=== PATIENT | female | born 1985 | race Caucasian/White ===

== ENCOUNTER 2023-07-05 12:21 | Inpatient (IN) | payer MEDICARE, MEDICAID ==
--- NOTE | 2023-07-05 12:49 | ED ---
General Adult HPI <Lewis Domingo - Last Filed: 07/05/23 12:49> - General Source: patient, RN notes reviewed Mode of arrival: ambulatory Limitations: no limitations <Lea Valencia - Last Filed: 07/06/23 02:32> - General Chief complaint: Psychiatric Symptoms Stated complaint: Mental Health Time Seen by Provider: 07/05/23 12:47 - History of Present Illness Initial comments: 37-year-old female presenting to the ED for psych evaluation. Per brother, has been picking up bottles from the store and has been calling them "medicine". States that these bottles are actually liquor bottles. That the patient is homeless and has been staying with him. She denied suicidal or homicidal ideation. (Lewis Domingo) This is a 37 year old female who presents to the emergency department for psychiatric evaluation. Patient was brought in by her brother and father. Per the patient's brother, she has a history of schizoaffective disorder and has been living with him for the last couple of weeks. She has not been taking any of her prescribed medications for at least a week, claiming that they're making her too tired. She has started self-medicating with alcohol, and referring to liquor bottles as her medicine. Her brother states that this is causing a lot of conflict between family members and almost caused a divorce between him and his . The patient has not been caring for herself and her brother and father are concerned about her safety. She has required inpatient psychiatric hospitalization in the past. Patient is responding to internal stimuli in the examination room. Denies any suicidal or homicidal ideations. (Lea Valencia) - Related Data Home Medications Medication Instructions Recorded Confirmed Divalproex ER [Depakote ER] 1,000 mg PO DAILY 07/05/23 07/05/23 Allergies Allergy/AdvReac Type Severity Reaction Status Date / Time fentanyl Allergy Anaphylaxis Verified 07/05/23 13:29 haloperidol [From Haldol] Allergy Unknown Verified 07/05/23 13:29 Review of Systems ROS Other: All systems not noted in ROS Statement are negative. <Lewis Domingo - Last Filed: 07/05/23 12:49> ROS Other: All systems not noted in ROS Statement are negative. <Lea Valencia - Last Filed: 07/06/23 02:32> ROS Statement: Those systems with pertinent positive or pertinent negative responses have been documented in the HPI. General Exam <Lewis Domingo - Last Filed: 07/05/23 12:49> Limitations: no limitations General appearance: alert, in no apparent distress Head exam: Present: atraumatic, normocephalic, normal inspection Respiratory exam: Present: normal lung sounds bilaterally. Absent: respiratory distress, wheezes, rales, rhonchi, stridor Cardiovascular Exam: Present: regular rate, normal rhythm, normal heart sounds. Absent: systolic murmur, diastolic murmur, rubs, gallop, clicks Neurological exam: Present: alert, oriented X3, CN II-XII intact Psychiatric exam: Present: flat affect. Absent: homicidal ideation, suicidal ideation Expanded Focused psych exam: Present: internal stimuli, delusional Skin exam: Present: warm, dry, intact, normal color. Absent: rash <Lea Valencia - Last Filed: 07/06/23 02:32> - General Exam Comments Initial Comments: Visual Physical Exam Vital signs reviewed General: Well-appearing, nontoxic, no acute distress. Head: Normocephalic, atraumatic Eyes: PERRLA, EOMI ENT: Airway patent Chest: Nonlabored breathing Skin: No visual rash, normal skin tone Neuro: Alert Musculoskeletal: No gross abnormalities (Lewis Domingo) Course Vital Signs 07/05/23 13:26 Temperature 98 F Pulse Rate 100 Respiratory 18 Rate Blood Pressure 132/78 O2 Sat by Pulse 100 Oximetry Medical Decision Making <Lewis Domigno - Last Filed: 07/05/23 12:49> <Lea Valencia - Last Filed: 07/06/23 02:32> - Medical Decision Making Quicknote portion performed. Signed Lewis Domingo PA-C (Lewis Domingo) This is a 37-year-old female who presents to the emergency department for psychiatric evaluation. Was pt. sent in by a medical professional or institution? @ -No Did you speak to anyone other than the patient for history? @ -Her brother provided the majority of the history. Did you review nursing and triage notes? @ -Yes, and I agree, it is accurate with regards to the patient's symptoms. Were old charts reviewed? @ -No Differential Diagnosis? @ -Differential Mental Health: Depression, anxiety, bipolar, psychosis, schizophrenia, borderline personality, situational depression, adjustment disorder, behavioral disorder, brain tumor, malingering, substance abuse, encephalopathy, medication reaction, dementia, h ypothyroidism, degenerative neurologic disorder, lupus.... This is not meant to be all-inclusive list EKG interpreted by me (3pts min.)? @ -Not obtained X-rays interpreted by me (1pt min.)? @ -Not obtained CT interpreted by me (1pt min.)? @ -Not obtained U/S interpreted by me (1pt. min.)? @ -Not obtained What testing was considered but not performed? (CT, X-rays, U/S, labs)? Why? @ -None What meds were considered but not given? Why? @ -None Did you discuss the management of the patient with other professionals? @ -Yes, EPS, who advised that the patient meets criteria for inpatient psychiatric hospitalization and will be admitted to this facility for further care. Did you reconcile home meds? @ -No Was smoking cessation discussed for >3mins.? @ -No Was critical care preformed (if so, how long)? @ -No Were there social determinants of health that impacted care today? How? (Homelessness, low income, unemployed, alcoholism, drug addiction, transportation, low edu. Level, literacy, decrease access to med. care, retirement, rehab)? @ -No Was there de-escalation of care discussed even if they declined? (Discuss DNR or withdrawal of care, Hospice)? @ -No What co-morbidities impacted this encounter? (DM, HTN, Smoking, COPD, CAD, Cancer, CVA, Hep., AIDS, mental health diagnosis, sleep apnea, morbid obesity)? @ -Schizoaffective disorder. Was patient admitted / discharged? @ -Admitted. Patient's BAT was 0.0 and she was cleared for EPS evaluation. UDS obtained and found to be negative. EPS evaluated the patient and found her to meet criteria for inpatient psychiatric hospitalization based on the active delusions, inability to care for herself, and lack of insight into her current situation. I am in agreement with this plan. Patient admitted to [facility] at this facility on in involuntary basis for further psychiatric care. Cert completed by ED attending, Dr. Tesfaye. Undiagnosed new problem with uncertain prognosis? @ -None Drug Therapy requiring intensive monitoring for toxicity (Heparin, Nitro, Insulin, Cardizem)? @ -None Were any procedures done? @ -None Diagnosis/symptom? @ -Psychosis Acute, or Chronic, or Acute on Chronic? @ -Acute Uncomplicated (without systemic symptoms) or Complicated (systemic symptoms)? @ -Complicated Side effects of treatment? @ -None Exacerbation, Progression, or Severe Exacerbation] @ -Not applicable Poses a threat to life or bodily function? @ -Yes This case was discussed in detail with the attending ED physician, Dr. Tesfaye. Presentation, findings, and treatment plan discussed in detail as well. (Lea Valencia) - Lab Data Lab Results 07/05/23 07/05/23 07/05/23 Range/Units 22:05 22:05 22:05 Urine Color Light Yellow Urine Appearance Cloudy H (Clear) Urine pH 6.0 (5.0-8.0) Ur Specific [place] 1.012 (1.001-1.035) Urine Protein Trace H (Negative) Urine Glucose (UA) Negative (Negative) Urine Ketones Negative (Negative) Urine Blood Negative (Negative) Urine Nitrite Negative (Negative) Urine Bilirubin Negative (Negative) Urine Urobilinogen <2.0 (<2.0) mg/dL Ur Leukocyte Esterase Large H (Negative) Urine RBC 21 H (0-5) /hpf Urine WBC 144 H (0-5) /hpf Ur Squamous Epith Cells 15 H (0-4) /hpf Urine Bacteria Occasional H (None) /hpf Urine Mucus Few H (None) /hpf Urine HCG, Qual Not Detected (Not Detectd) Urine Opiates Screen Not Detected (NotDetected) Ur Oxycodone Screen Not Detected (NotDetected) Urine Methadone Screen Not Detected (NotDetected) Ur Barbiturates Screen Not Detected (NotDetected) U Tricyclic Antidepress Not Detected (NotDetected) Ur Phencyclidine Scrn Not Detected (NotDetected) Ur Amphetamines Screen Not Detected (NotDetected) U Methamphetamines Scrn Not Detected (NotDetected) U Benzodiazepines Scrn Not Detected (NotDetected) Urine Cocaine Screen Not Detected (NotDetected) U Marijuana (THC) Screen Not Detected (NotDetected) SARS-CoV-2 (PCR) (Not Detectd) 07/05/23 Range/Units 23:50 Urine Color Urine Appearance (Clear) Urine pH (5.0-8.0) Ur Specific [place] (1.001-1.035) Urine Protein (Negative) Urine Glucose (UA) (Negative) Urine Ketones (Negative) Urine Blood (Negative) Urine Nitrite (Negative) Urine Bilirubin (Negative) Urine Urobilinogen (<2.0) mg/dL Ur Leukocyte Esterase (Negative) Urine RBC (0-5) /hpf Urine WBC (0-5) /hpf Ur Squamous Epith Cells (0-4) /hpf Urine Bacteria (None) /hpf Urine Mucus (None) /hpf Urine HCG, Qual (Not Detectd) Urine Opiates Screen (NotDetected) Ur Oxycodone Screen (NotDetected) Urine Methadone Screen (NotDetected) Ur Barbiturates Screen (NotDetected) U Tricyclic Antidepress (NotDetected) Ur Phencyclidine Scrn (NotDetected) Ur Amphetamines Screen (NotDetected) U Methamphetamines Scrn (NotDetected) U Benzodiazepines Scrn (NotDetected) Urine Cocaine Screen (NotDetected) U Marijuana (THC) Screen (NotDetected) SARS-CoV-2 (PCR) Not Detected (Not Detectd) Disposition <Lewis Domingo - Last Filed: 07/05/23 12:49> <Lea Valencia - Last Filed: 07/06/23 02:32> Clinical Impression: Acute psychosis Disposition: TRANSFER TO PSYCH HOSP/UNIT
[2023-07-05 22:33] LABS: Appearance,Urine Cloudy (Clear); Bacteria,Urine Occasional /hpf; Bilirubin,Urine Negative (Negative); Blood,Urine Negative (Negative); Color,Urine Light Yellow; Glucose,Urine (UA) Negative (Negative); Ketones,Urine Negative (Negative); Leukocyte Esterase,Urine Large (Negative); Mucus,Urine Few /hpf; Nitrite,Urine Negative (Negative); Protein,Urine Trace (Negative); RBC,Urine 21 /hpf (0-5); Specific Gravity,Urine 1.012 (1.001-1.035); Squamous Epithelial Cell,Urine 15 /hpf (0-4); Urobilinogen,Urine <2.0 mg/dL (<2.0); WBC,Urine 144 /hpf (0-5)
[2023-07-05 22:35] LABS: Amphetamine Screen,Urine Not Detected (NotDetected); Barbiturate Screen,Urine Not Detected (NotDetected); Benzodiazepines Screen,Urine Not Detected (NotDetected); Cocaine Screen,Urine Not Detected (NotDetected); Methadone Screen, Urine Not Detected (NotDetected); Opiate Screen,Urine Not Detected (NotDetected); Oxycodone Screen, Urine Not Detected (NotDetected); Phencyclidine Screen,Urine Not Detected (NotDetected); Tricyclic Antidepressant,Urine Not Detected (NotDetected); Urn Cannabinoid Scrn Not Detected (NotDetected)
[2023-07-06] MEDS ORDERED: OLANZapine 10 MG VIAL IM PRN (00:59)
[2023-07-06] MEDS ORDERED: OLANZapine 7.5 MG TAB PO PRN (00:59)
[2023-07-06] MEDS ORDERED: ACETAMINOPHEN TAB 325 MG TAB PO PRN (00:59)
[2023-07-06] MEDS ORDERED: MAG HYDROX/AL HYDROX/SIMETH 30 ML CUP PO PRN (00:59)
[2023-07-06] MEDS ORDERED: IBUPROFEN 600 MG TAB PO PRN (00:59)
[2023-07-06] MEDS ORDERED: MAGNESIUM HYDROXIDE 2,400 MG/30 ML CUP PO PRN (00:59)
[2023-07-06] MEDS: NICOTINE 14MG/24HR PATCH TRANSDERM SCH (09:18)
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
--- NOTE | 2023-07-06 16:08 | P.MDCNMH ---
History of Present Illness H&P Date: 07/06/23 This is a 37-year-old female who presented to the emergency department for psychiatric evaluation. Patient has been homeless and currently staying with family members including brother and reports to excessively drinking and has not been taking her psychiatric medications reporting and has been making her feel more tired. Patient has been self-medicating with alcohol. Patient was admitted under voluntary admission for further psychiatric care and evaluation to [facility] from the emergency room. Patient reports she follows with Dr. Aguilar in the outpatient setting with a past medical history of kidney stones and schizoaffective disorder. Patient admits she smokes about a pack a day of c igarettes and has been vaping and has been drinking daily. Patient reports she was on Depakote but feels that is the medication that was making her feel too tired. Review Of Systems: Constitutional: No fever, no chills, no night sweats. No weight change. No weakness, fatigue or lethargy. No daytime sleepiness. EENT: No headache. No blurred vision or double vision, no loss of vision. No loss of Hearing, no ringing in the ears, no dizziness. No nasal drainage or congestion. No epistaxis. No sore throat. Lungs: No shortness of breath, cough, no sputum production. No wheezing. Cardiovascular: No chest pain, no lower extremity edema. No palpitations. No paroxysmal nocturnal dyspnea. No orthopnea. No lightheadedness or dizziness. No syncopal episodes. Abdominal: No abdominal pain. No nausea, vomiting. No diarrhea. No constipation. No bloody or tarry stools.. No loss of appetite. Genitourinary: No dysuria, increased frequency, urgency. No urinary retention. Musculoskeletal: No myalgias. No muscle weakness, no gait dysfunction, no frequent falls. No back pain. No neck pain. Integumentary: No wounds, no lesions. No rash or pruritus. No unusual bruising. No change in hair or nails. Neurologic: No aphasia. No facial droop. No change in mentation. No head injury. No headache. No paralysis. No paresthesia. Psychiatric: No depression. No anxiety. No mood swings. Endocrine: No abnormal blood sugars. No weight change. No excessive sweating or thirst. No cold intolerance. PHYSICAL EXAMINATION: GENERAL: The patient is alert and oriented x4, Well developed, well nourished. HEENT: Pupils are round and equally reacting to light. EOMI. no scleral icterus. No conjunctival pallor. Normocephalic, atraumatic. No pharyngeal erythema. No thyromegaly. CARDIOVASCULAR: S1 and S2 muffled PULMONARY: diminished breath sounds bilaterally with no wheezing or rhonchi noted. ABDOMEN: soft. Nontender on exam. obese. non-distended, normoactive bowel sounds. No palpable organomegaly. MUSCULOSKELETAL: No joint swelling or deformity. EXTREMITIES: No cyanosis, clubbing, or pedal edema. NEUROLOGICAL: Gross neurological examination did not reveal any focal deficits. Diffuse weakness SKIN: No rashes. Assessment: EtOH abuse and has been drinking daily most recently, no signs of withdrawal at this time Schizoaffective disorder History of kidney stones Continued ongoing nicotine dependence vaping Noncompliance with medications Full code Plan: Recommend to continue with current medications and management per psychiatric services. Patient was voluntarily admitted to [facility] for further psychiatric care Patient has been using alcohol almost daily and self-medicating and has not been compliant with psychiatric medications reporting may make her feel too tired Patient is currently homeless and has been staying with her brother and other family members and reports does have 2 children although does not have contact with them at this time and has poor social support Patient reports she follows with [facility] in the outpatient setting although has not been following up as scheduled Recommend basic labs along with a Depakote level which is currently pending at this time Patient has been encouraged to attend group therapy sessions and be compliant with medications and psychiatric evaluation. The impression and plan of care has been dictated by Chloé Mak, nurse practitioner as directed. Dr. Jf MD I have performed a history and examination and MDM of this patient, discussed the same with the dictator, and agree with the dictator's assessment and plan as written ,documented as a scribe. Based on total visit time, I have performed more than 50% of the visit. Any additional findings or plans will be noted. Past Medical History Additional Past Medical History / Comment(s): kidney stones History of Any Multi-Drug Resistant Organisms: None Reported Past Surgical History: Unable to Obtain Past Anesthesia/Blood Transfusion Reactions: Unable to Obtain Past Psychological History: Schizoaffective Disorder Smoking Status: Current every day smoker, Vaper Past Alcohol Use History: Heavy Past Drug Use History: None Reported Medications and Allergies Home Medications Medication Instructions Recorded Confirmed Type Divalproex ER [Depakote ER] 1,000 mg PO DAILY 07/05/23 07/05/23 History Allergies Allergy/AdvReac Type Severity Reaction Status Date / Time fentanyl Allergy Anaphylaxis Verified 07/05/23 13:29 haloperidol [From Haldol] Allergy Unknown Verified 07/05/23 13:29 Physical Exam Vitals: Vital Signs Temp Pulse Pulse Resp BP BP Pulse Ox 07/06/23 02:40 97.9 F 85 18 134/82 98 07/05/23 13:26 98 F 100 18 132/78 100 Intake and Output 07/05/23 07/06/23 07/06/23 22:59 06:59 14:59 Other: Weight 64.467 kg Cranial Nerve Examination - Cranial Nerves Cranial Nerve I- Olfactory: Intact Cranial Nerve II- Optic: Intact Cranial Nerve III- Oculomotor: Intact Cranial Nerve IV- Trochlear: Intact Cranial Nerve V- Trigeminal: Intact Cranial Nerve - Abducens: Intact Cranial Nerve VII- Facial: Intact Cranial Nerve VIII- Auditory: Intact Cranial Nerve IX- Glossopharyngeal: Intact Cranial Nerve X- Vagus: Intact Cranial Nerve XI- Accessory: Intact Cranial Nerve XII- Hypoglossal: Intact Results Labs: Abnormal Lab Results - Last 24 Hours (Table) 07/05/23 Range/Units 22:05 Urine Appearance Cloudy H (Clear) Urine Protein Trace H (Negative) Ur Leukocyte Esterase Large H (Negative) Urine RBC 21 H (0-5) /hpf Urine WBC 144 H (0-5) /hpf Ur Squamous Epith Cells 15 H (0-4) /hpf Urine Bacteria Occasional H (None) /hpf Urine Mucus Few H (None) /hpf
--- NOTE | 2023-07-07 06:45 | P.PN ---
Subjective Progress Note Date: 07/07/23 Principal diagnosis: Diagnostic impression: Schizoaffective disorder unspecified Rule out alcohol use disorder Relationship problems Patient Name: Isabel Orellana Date of : 85 Patient Status: Inpatient Attending Provider: Carl Loaiza Date: 07/07/23 Subjective data: The patient was seen in her room where she seemed to be alert outside talking to herself Insight into the patient was pleasant and interactive patient reports that she usually talks to herself loudly She denies that she is experiencing any auditory or visual hallucinations She says that she is agreeable to take her to do and that she has no problems with starting on new medications She states that emotionally she feels somewhat numb She stated was any problems between her and her brother and his family and appears to be minimizing or unaware of it Thinking remains self-centered Denies any thoughts of wanting to herself or others Attitude remains that of somewhat uncaring and projective? States that she slept well Mental status examination: Reveals a young female who is appears her age and currently appears in no acute physical distress Patient is neatly dressed and groomed The patient is alert and oriented to time place and person Patient was added and superficially cooperative but did not give much details She makes good eye contact Speech was clear coherent and relevant Thought processes are goal-directed sequential mejia of any details Patient does not acknowledge to any depression or anxiety or any psychotic symptoms She denies any auditory or visual hallucinations She denies any feelings of helplessness or hopelessness Thought processes are goal-directed sequential , but empty of any details Patient's formal and operational judgment and insight remains impaired cognitively she appears to be intact Diagnostic impression: Schizoaffective disorder unspecified Rule out alcohol use disorder Relationship problems Formulation: This is a 37-year-old female with long history of mental illness and with a di agnosis of schizoaffective disorder Patient has a long history of mental illness with poor compliance She was on Depakote Prozac and Abilify but has not been taking her medications Patient also has a possible underlying alcohol use disorder Patient's symptoms appear to be causing adequate stress in her personal life as well as in her supportive family"s life and was brought into the hospital for further evaluation and treatment Plan: The patient sign in voluntarily and the paperwork has been placed in the chart Patient will be hospital is on the unit for further evaluation and treatment Patient will also participate in on the mejia activities individual milieu group OT RT PT and pharmacotherapy Approximately length of stay would be 7-12 days Medications: Patient has agreed to be started on Latuda and was started initially on 40 mg daily to start within titrated to response Patient was briefed on the effects and side effects of the medication which she appears to have understood well Patient has declined to take the Abilify and the Depakote but has agreed to take the Prozac but we'll wait on restarting the Prozac was of necessary Monitor for any alcohol withdrawal symptoms although patient reports that she's been drinking small amounts and socially patient services coordinator to be involved regarding placement recommendations as well as family communication and collateral information Maintain supportive care and safety precautions Encourage the patient to participate in on the mejia activities and milieu treatment Arnie Oro M.D. Objective - Vital Signs Vital signs: Vital Signs Temp 97.9 F 07/06/23 02:40 Pulse 85 07/06/23 02:40 Resp 18 07/06/23 02:40 BP 134/82 07/06/23 02:40 Pulse Ox 98 07/06/23 02:40 FiO2 Intake & Output 07/06/23 07/06/23 07/07/23 06:59 18:59 06:59 Weight 64.467 kg
[2023-07-07 08:25] LABS: Basophils % (A) 1 %; Eosinophils # (A) 0.2 k/uL (0-0.7); Eosinophils % (A) 2 %; HCT 45.7 % (34.0-46.0); Lymphocytes # (A) 1.3 k/uL (1.0-4.8); Lymphocytes % (A) 21 %; MCH 31.3 pg (25.0-35.0); MCHC 32.8 g/dL (31.0-37.0); MCV 95.2 fL (80.0-100.0); Mean Platelet Volume 7.2; Monocytes # (A) 0.3 k/uL (0-1.0); Monocytes % (A) 5 %; Neutrophils # (A) 4.3 k/uL (1.3-7.7); Neutrophils % (A) 69 %; Platelet Count 195 k/uL (150-450); RDW 12.2 % (11.5-15.5); WBC 6.2 k/uL (3.8-10.6)
[2023-07-07] MEDS: LURASIDONE 40 MG TAB PO SCH (08:27)
[2023-07-07] MEDS: NICOTINE 14MG/24HR PATCH TRANSDERM SCH (08:27)
[2023-07-07 08:57] LABS: ALT 12 U/L (4-34); AST 19 U/L (14-36); African American GFR (CKD) 78 (>60 ml/min/1.73 sqM); Albumin 4.2 g/dL (3.5-5.0); Alkaline Phosphatase 74 U/L (38-126); Anion Gap 14 mmol/L; Bilirubin, Delta 0.2 mg/dL (0.0-0.2); Bilirubin,Unconjugated 0.5 mg/dL (0.0-1.1); Blood Urea Nitrogen 16 mg/dL (7-17); Calcium 9.4 mg/dL (8.4-10.2); Carbon Dioxide 24 mmol/L (22-30); Chloride 103 mmol/L (98-107); Glucose 93 mg/dL (74-99); Non-African American GFR(CKD) 67 (>60 ml/min/1.73 sqM); Potassium 4.6 mmol/L (3.5-5.1); Sodium 141 mmol/L (137-145); Total Bilirubin 0.7 mg/dL (0.2-1.3); Total Protein 7.4 g/dL (6.3-8.2)
[2023-07-07 15:23] LABS: Chol/HDL Ratio 2.73 Ratio; LDL Cholesterol,Calculated 97.2 mg/dL (0.0-131.0)
[2023-07-08] MEDS: NICOTINE 14MG/24HR PATCH TRANSDERM SCH (08:25)
[2023-07-08] MEDS: LURASIDONE 40 MG TAB PO SCH ×3 (08:25→17:46)
[2023-07-08] MEDS ORDERED: LURASIDONE 40 MG TAB PO SCH (17:30)
[2023-07-09] MEDS: LURASIDONE 40 MG TAB PO SCH ×2 (08:23→17:41)
[2023-07-09] MEDS: NICOTINE 14MG/24HR PATCH TRANSDERM SCH (08:26)
[2023-07-09] MEDS: OLANZapine 10 MG TAB PO PRN (13:21)
--- NOTE | 2023-07-09 18:06 | P.PN ---
Progress Note - Text Progress Note Date: 07/08/23 Interval history: Patient was seen resting in bed in the dark in the middle of the day and was directable and agreeable to speak with principal technical writer. She states she is "not really good", appears internally preoccupied, staring at the ceiling. Thought process is concrete. At this time patient denies any suicidal or homicidal ideation, intent or plan. Denies any auditory or visual hallucinations, however she appears internally preoccupied. Patient denies any side effects from the m edications and has been compliant with meds. We discussed her medications and she inquires about an increase in her Latuda, so we will increase this to Latuda 40 mg BID with meals. Mental status exam: General Appearance: Patient appears to be stated age, young adult female, somewhat disheveled Behavior: No agitated behavior. Patient is calm, passively engaged, laying in bed Speech: Patient's speech is fluent and non-pressured. Mood/Affect: Mood is improving mildly, affect is congruent and constricted. Suicidality/Homicidality: Patient denies having any suicidal or homicidal ideation intent or plan. Perceptions: Patient denies any auditory or visual hallucinations, however she appears internally preoccupied. Though content/process: There is no evidence of any delusional thought content and thought process is somewhat concrete. Memory and concentration: AOX3, grossly intact for the purposes of this session Judgment and insight: Improving mildly Assessment/Plan: Continue with current diagnosis. Patient continues to meet criteria for inpatient psychiatric admission for symptom stabilization and safety. Increase Latuda from 40 mg daily with food to 40 mg BID with meals (breakfast and dinner) for mood/psychosis. Monitor for medication compliance and for any psychotropic medication side effects. Will continue to monitor ongoing response to treatment. Encouraged participation in milieu.
--- NOTE | 2023-07-09 18:16 | P.PN ---
Progress Note - Text Progress Note Date: 07/09/23 Interval history: Patient was seen resting in bed in the dark in the middle of the day but appears more actively engaged in assessment today. She states her mood is "pretty good"; feels better on the increased dose of Latuda and denies medication side effects. Thought process is concrete. At this time patient denies any suicidal or homicidal ideation, intent or plan. Denies any auditory or visual hallucinations, but still appears internally preoccupied. Per nursing note, patient was agitated this afternoon, appeared to be attending to unseen stimuli. She was given Zyprexa 10 mg po x 1 at 13:20 by nurse and appears to have benefited from it. Patient denies any side effects from the medications and has been compliant with meds. We discussed her medications and increasing her Latuda to 60 mg BID with meals and she expresses agreement. Mental status exam: General Appearance: Patient appears to be stated age, young adult female, improved grooming today Behavior: No agitated behavior. Patient is calm, laying in bed. Speech: Patient's speech is fluent and non-pressured. Mood/Affect: Mood is improving mildly, affect is congruent and constricted. Suicidality/Homicidality: Patient denies having any suicidal or homicidal ideation intent or plan. Perceptions: Patient denies any auditory or visual hallucinations, however she appears internally preoccupied. Though content/process: There is no overt delusional thought content during our assessment and thought process is somewhat concrete. Memory and concentration: AOX3, grossly intact for the purposes of this session Judgment and insight: Improving mildly Assessment/Plan: Continue with current diagnosis. Patient continues to meet criteria for inpatient psychiatric admission for symptom stabilization and safety. Increase Latuda from 40 mg BID with meals to 60 mg BID with meals (breakfast and dinner) for mood/psychosis. Continue Zyprexa 10 mg Q6H PRN for agitation/psychosis. Monitor for medication compliance and for any psychotropic medication side effects. Will continue to monitor ongoing response to treatment. Encouraged participation in milieu.
[2023-07-09] MEDS ORDERED: LURASIDONE 20 MG TAB PO ONE (18:25)
[2023-07-10] MEDS ORDERED: LURASIDONE 60 MG TAB PO SCH (07:30)
[2023-07-10] MEDS: NICOTINE 14MG/24HR PATCH TRANSDERM SCH (08:38)
--- NOTE | 2023-07-10 11:56 | P.PN ---
Progress Note - Text Progress Note Date: 07/10/23 Interval history: Patient was seen in her room, and agreeable to speak with financial writer at the bedside. Patient was not willing to come to the office today. Continues to be fairly concrete. She did not offer any complaints at this time. She vaguely spoke about watched him to the hospital whenever mainly stated "because I wasn't taking medications". She does claim that she has a history of schizoaffective disorder. 2. To have fairly poor insight and judgment. She has been taking her medications at this time. She did not offer any overnight complaint states that she is sleeping fairly. She claimed that she is feeling bored on the unit. Denies any delusions or paranoia at this time. Continues to appear to be internally preoccupied. At this time patient denies any suicidal or homicidal ideation, intent or plan. Denies any auditory or visual hallucinations, Patient denies any side effects from the medications and has been compliant with meds. Mental status exam: General Appearance: Patient appears to be stated age, young adult female, fair hygiene and grooming Behavior: No agitated behavior. Patient is calm, laying in bed. Superficial Speech: Patient's speech is fluent and non-pressured. [place] Mood/Affect: Mood is improving mildly, affect is congruent and constricted. Suicidality/Homicidality: Patient denies having any suicidal or homicidal ideation intent or plan. Perceptions: Patient denies any auditory or visual hallucinations, however she appears internally preoccupied. Though content/process: There is no overt delusional thought content during our assessment and thought process is somewhat concrete. Memory and concentration: AOX3, grossly intact for the purposes of this session Judgment and insight: Improving mildly Diagnostic impression: Schizoaffective disorder Rule out alcohol use disorder Assessment/Plan: Continue with current diagnosis. Patient continues to meet criteria for inpatient psychiatric admission for symptom stabilization and safety. changed Latuda 120 mg with dinner for mood/psychosis. Continue Zyprexa 10 mg Q6H PRN for agitation/psychosis. Monitor for medication compliance and for any psychotropic medication side effects. NRT - nicotine patch SW on board for discharge planning. Will continue to monitor ongoing response to treatment. Encouraged participation in milieu.
[2023-07-10] MEDS: LURASIDONE 60 MG TAB PO SCH (17:35)
[2023-07-11] MEDS: NICOTINE 14MG/24HR PATCH TRANSDERM SCH (08:41)
--- NOTE | 2023-07-11 11:55 | P.PN ---
Progress Note - Text Progress Note Date: 07/11/23 Interval history: Patient was seen in her room, and agreeable to speak with proposal writer at the bedside. Patient remains fairly concrete, however, this is improving mildly. States her mood is "good" and does not have complaints about anxiety or depression. She did not offer any complaints at this time. Patient's insight and judgement is mildly improving. She has been taking her medications at this time. Appetite is good. She did not offer any overnight complaint states that she is sleeping well. Spoke with patient about signing a release of information for her brother, where she will be staying upon discharge, so SW can coordinate d/c planning. Denies any delusions or paranoia at this time. At this time patient denies any suicidal or homicidal ideation, intent or plan. Denies any auditory or visual hallucinations, Patient denies any side effects from the medications and has been compliant with meds. Mental status exam: General Appearance: Patient appears to be stated age, young adult female, fair hygiene and grooming Behavior: No agitated behavior. Patient is calm, laying in bed. Superficial, mildly improving Speech: Patient's speech is fluent and non-pressured. [place], mildly improving Mood/Affect: Mood is "alright", affect is congruent and constricted. mildly improving Suicidality/Homicidality: Patient denies having any suicidal or homicidal ideation intent or plan. Perceptions: Patient denies any auditory or visual hallucinations, however she is less internally preoccupied. Though content/process: There is no overt delusional thought content during our assessment and thought process is somewhat concrete. Memory and concentration: AOX3, grossly intact for the purposes of this session Judgment and insight: Improving mildly Diagnostic impression: Schizoaffective disorder Rule out alcohol use disorder Assessment/Plan: Continue with current diagnosis. Patient continues to meet criteria for inpatient psychiatric admission for symptom stabilization and safety. continue Latuda 120 mg with dinner for mood/psychosis. Continue Zyprexa 10 mg Q6H PRN for agitation/psychosis. Monitor for medication compliance and for any psychotropic medication side effects. NRT - nicotine patch SW on board for discharge planning. Will continue to monitor ongoing response to treatment. Encouraged participation in milieu. Possible d/c to her brothers house in [place], if patient continues to improve psychiatrically
[2023-07-11] MEDS: LURASIDONE 60 MG TAB PO SCH (13:34)
[2023-07-12] MEDS: NICOTINE 14MG/24HR PATCH TRANSDERM SCH (07:50)
[2023-07-12] MEDS: LURASIDONE 60 MG TAB PO SCH (07:50)
[2023-07-12] MEDS: OLANZapine 10 MG TAB PO PRN (08:46)
--- NOTE | 2023-07-12 11:26 | P.PN ---
Progress Note - Text Progress Note Date: 07/12/23 Interval history: Patient was seen in her room, and agreeable to speak with development writer at the bedside. Patient remains fairly concrete, however, this is improving mildly. States her mood is "alright" and does not have complaints about anxiety or depression. Supervisor Fertilizer Processing spoke with the patient about where she will stay when she is discharged. She stated that she will be going to her brothers house to live. Patient's insight and judgment is improving. She has been taking her medications at this time. Appetite is good. She did not offer any overnight complaint, states that she is sleeping well. Denies any delusions or paranoia at this time. At this time patient denies any suicidal or homicidal ideation, intent or plan. Denies any auditory or visual hallucinations, Patient denies any side effects from the medications and has been compliant with meds. Mental status exam: General Appearance: Patient appears to be stated age, young adult female, fair hygiene and grooming Behavior: No agitated behavior. Patient is calm, laying in bed. Speech: Patient's speech is fluent and non-pressured. improving Mood/Affect: Mood is "alright", affect is congruent and constricted. improving Suicidality/Homicidality: Patient denies having any suicidal or homicidal ideation intent or plan. Perceptions: Patient denies any auditory or visual hallucinations, however she is less internally preoccupied.improving Though content/process: There is no overt delusional thought content during our assessment and thought process is somewhat concrete, improving Memory and concentration: AOX3, grossly intact for the purposes of this session Judgment and insight: Improving Diagnostic impression: Schizoaffective disorder Rule out alcohol use disorder Assessment/Plan: Continue with current diagnosis. Patient continues to meet criteria for inpatient psychiatric admission for symptom stabilization and safety. Medications: Latuda 120 mg with dinner for mood/psychosis. Zyprexa 10 mg Q6H PRN for agitation/psychosis. Monitor for medication compliance and for any psychotropic medication side effects. NRT - nicotine patch SW on board for discharge planning. Will continue to monitor ongoing response to treatment. Encouraged participation in milieu. Possible d/c tomorrow to her brothers house in [place], if patient continues to improve psychiatrically
[2023-07-13] MEDS: NICOTINE 14MG/24HR PATCH TRANSDERM SCH (07:51)
--- NOTE | 2023-07-13 09:25 | P.PN ---
Progress Note - Text Progress Note Date: 07/13/23 Interval history: Patient was seen in her room, and agreeable to speak with technical writer at the bedside. Patient remains fairly concrete. States her mood is "upset" and does not have complaints about anxiety or depression. Patient upset because her Latuda was switched to with dinner, and she wants to take it at breakfast. Patient observed responding to internal stimuli. Having a full conversation with herself, as if she was talking on the phone with someone. Director Microbiology spoke with the patient about where she will stay when she is discharged. She stated that she will be going to her brothers house to live, SW spoke to brother, and he stated patient is not able to come back to his home.Patient's insight and judgment is no improving. She has been taking her medications at this time. patient has a more irritable tone today and focused on discharge. Appetite is good. Spoke with patient about switching her medication to invega, she states she does not want to take it because "I don't like the name of it". Director Microbiology explained to the patient that it will better control her symptoms. She did not offer any overnight complaint, states that she is sleeping well. Denies any delusions or paranoia at this time. At this time patient denies any suicidal or homicidal ideation, intent or plan. Denies any auditory or visual hallucinations, Patient denies any side effects from the medications and has been compliant with meds. Mental status exam: General Appearance: Patient appears to be stated age, young adult female, fair hygiene and grooming. responding to internal stimuli at times. Behavior: No agitated behavior. Patient is calm, laying in bed. Speech: Patient's speech is fluent and non-pressured. Mood/Affect: Mood is "upset", affect is congruent and constricted. Suicidality/Homicidality: Patient denies having any suicidal or homicidal ideation intent or plan. Perceptions: Patient denies any auditory or visual hallucinations, however she is responding to internal stimuli, talking to someone who is not there Though content/process: There is no overt delusional thought content during our assessment and thought process is somewhat concrete Memory and concentration: AOX3, grossly intact for the purposes of this session Judgment and insight: poor Diagnostic impression: Schizoaffective disorder Rule out alcohol use disorder Assessment/Plan: Continue with current diagnosis. Patient continues to meet criteria for inpatient psychiatric admission for symptom stabilization and safety. Medications: d/c Latuda due to ineffectiveness, add Invega 3mg bid PO for psychosis. Zyprexa 10 mg Q6H PRN for agitation/psychosis. Monitor for medication compliance and for any psychotropic medication side effects. NRT - nicotine patch SW on board for discharge planning. Will continue to monitor ongoing response to treatment. Encouraged participation in milieu. patient apparently is not allowed back at her brothers house, will discuss other discharge options.
[2023-07-13] MEDS: PALIPERIDONE 3 MG TAB.ER.24 PO SCH ×2 (09:40→19:04)
[2023-07-14] MEDS: NICOTINE 14MG/24HR PATCH TRANSDERM SCH (07:53)
[2023-07-14] MEDS: PALIPERIDONE 3 MG TAB.ER.24 PO SCH ×2 (08:32→17:58)
--- NOTE | 2023-07-14 11:53 | P.PN ---
Progress Note - Text Progress Note Date: 07/14/23 Interval history: Patient was seen in her room, and agreeable to speak with insurance underwriter sales at the bedside. Patient remains fairly concrete, mildly improving. States her mood is "pretty good today" and does not have complaints about anxiety or depression. Patient's insight and judgment now mildly improving. She has been taking her medications at this time. Appetite is good. insurance underwriter sales spoke with patient about how the Invega is going for her, she stated that she feels it is working better for her compar ed to [facility], and is not having any side effects from it. Spoke with the patient about a JENSEN, patient declined at this time. She did not offer any overnight complaint, states that she is sleeping well. Patient informed that she cannot return to her brothers house, she stated that she will call her mother in [place] to see if she will come get her, and let her live there until she can get back on her feet. Denies any delusions or paranoia at this time. At this time patient denies any suicidal or homicidal ideation, intent or plan. Denies any auditory or visual hallucinations, Patient denies any side effects from the medications and has been compliant with meds. Mental status exam: General Appearance: Patient appears to be stated age, young adult female, fair hygiene and grooming. responding to internal stimuli at times. Behavior: No agitated behavior. Patient is calm, laying in bed. Speech: Patient's speech is fluent and non-pressured. Mood/Affect: Mood is "pretty good", affect is congruent and constricted. mildly improving Suicidality/Homicidality: Patient denies having any suicidal or homicidal ideation intent or plan. Perceptions: Patient denies any auditory or visual hallucinations, however she is responding to internal stimuli, talking to someone who is not there, mildly improving. Though content/process: There is no overt delusional thought content during our assessment and thought process is somewhat concrete Memory and concentration: AOX3, grossly intact for the purposes of this session Judgment and insight: poor, mildly improving Diagnostic impression: Schizoaffective disorder Rule out alcohol use disorder Assessment/Plan: Continue with current diagnosis. Patient continues to meet criteria for inpatient psychiatric admission for symptom stabilization and safety. Medications: Invega 3mg bid PO for psychosis. Zyprexa 10 mg Q6H PRN for agitation/psychosis. Monitor for medication compliance and for any psychotropic medication side effects. NRT - nicotine patch SW on board for discharge planning. Will continue to monitor ongoing response to treatment. Encouraged participation in milieu. patient stated she will be calling her mother in [place], to see if she can live with her upon discharge. likely discharge early next week if patient is improving. Offered JENSEN to ensure compliance however patient is declining it at this time.
[2023-07-15] MEDS: PALIPERIDONE 3 MG TAB.ER.24 PO SCH ×2 (07:52→17:35)
[2023-07-15] MEDS: NICOTINE 14MG/24HR PATCH TRANSDERM SCH (07:53)
--- NOTE | 2023-07-15 10:57 | P.PN ---
Progress Note - Text Progress Note Date: 07/15/23 Interval history: Patient was seen in her room, and agreeable to speak with publications writer at the bedside. Patient remains fairly concrete, mildly improving. States her mood is "alright" and does not have complaints about anxiety or depression. Patient's insight and judgment now mildly improving. She has been taking her medications at this time and is not currently reporting any side effects. Limo Driver asked the patient has been speaking with her mother in [place] however she states that her phone d ischarging at this time and will try to call her later on this afternoon to see if she can stay with her and get picked up by her. Appetite is good. she states that she is sleeping well. Denies any delusions or paranoia at this time. At this time patient denies any suicidal or homicidal ideation, intent or plan. Denies any auditory or visual hallucinations, Patient denies any side effects from the medications and has been compliant with meds. Not responding to internal stimuli today. Mental status exam: General Appearance: Patient appears to be stated age, young adult female, fair hygiene and grooming. Behavior: No agitated behavior. Patient is calm, laying in bed. Not responding to internal stimuli today. Speech: Patient's speech is fluent and non-pressured. Mood/Affect: Mood is "pretty good", affect is congruent and constricted. mildly improving Suicidality/Homicidality: Patient denies having any suicidal or homicidal ideation intent or plan. Perceptions: Patient denies any auditory or visual hallucinations Though content/process: There is no overt delusional thought content during our assessment and thought process is somewhat concrete. More logical Memory and concentration: AOX3, grossly intact for the purposes of this session Judgment and insight: poor, mildly improving Diagnostic impression: Schizoaffective disorder Rule out alcohol use disorder Assessment/Plan: Continue with current diagnosis. Patient continues to meet criteria for inpatient psychiatric admission for symptom stabilization and safety. Medications: Invega 3mg bid PO for psychosis. Offered to transition onto JENSEN to help ensure compliance however patient is refusing at this time. Zyprexa 10 mg Q6H PRN for agitation/psychosis. Monitor for medication compliance and for any psychotropic medication side effects. NRT - nicotine patch SW on board for discharge planning. Will continue to monitor ongoing response to treatment. Encouraged participation in milieu. patient stated she will be calling her mother in [place], to see if she can live with her upon discharge. likely discharge early this week if patient is improving. Offered JENSEN to ensure compliance however patient is declining it at this time.
[2023-07-16] MEDS: PALIPERIDONE 3 MG TAB.ER.24 PO SCH (07:07)
[2023-07-16] MEDS: NICOTINE 14MG/24HR PATCH TRANSDERM SCH (07:10)
[2023-07-16] MEDS ORDERED: PALIPERIDONE 6 MG TAB.ER.24 PO STA (11:39)
--- NOTE | 2023-07-16 11:43 | P.PN ---
Progress Note - Text Progress Note Date: 07/16/23 Interval history: Patient was seen in her room, and agreeable to speak with brief writer at the bedside. Patient remains fairly concrete, mildly improving. Today she is denying any anxiety or depression. Patient's insight and judgment now mildly improving. She claims that she has been mainly walking around the unit and keeping herself. She states that she attempted to call her mother however states that her mother told her that she should remain in [place] with her brothers. She states that she will try to call her brother Today and also her father to see if she can stay with him. We spoke about the alternative of a low-cost motel versus assisted. He claims that her Appetite is good. she states that she is sleeping well. Denies any delusions or paranoia at this time. Patient requested to have her paliperidone increased to 9 mg total today. At this time patient denies any suicidal or homicidal ideation, intent or plan. Denies any auditory or visual hallucinations, Patient denies any side effects from the medications and has been compliant with meds. Not responding to internal stimuli today. Mental status exam: General Appearance: Patient appears to be stated age, young adult female, fair hygiene and grooming. Behavior: No agitated behavior. Patient is calm, laying in bed. Not responding to internal stimuli today. Speech: Patient's speech is fluent and non-pressured. Mood/Affect: Mood is "pretty good", affect is congruent and constricted. mildly improving Suicidality/Homicidality: Patient denies having any suicidal or homicidal ideation intent or plan. Perceptions: Patient denies any auditory or visual hallucinations Though content/process: There is no overt delusional thought content during our assessment and thought process is somewhat concrete. More logical Memory and concentration: AOX3, grossly intact for the purposes of this session Judgment and insight: poor, mildly improving Diagnostic impression: Schizoaffective disorder Rule out alcohol use disorder Assessment/Plan: Continue with current diagnosis. Patient continues to meet criteria for inpatient psychiatric admission for symptom stabilization and safety. Medications: Increase Invega 9 mg total PO daily for psychosis. Offered to transition onto JENSEN to help ensure compliance however patient is refusing at this time. Zyprexa 10 mg Q6H PRN for agitation/psychosis. Monitor for medication compliance and for any psychotropic medication side effects. NRT - nicotine patch SW on board for discharge planning. Will continue to monitor ongoing response to treatment. Encouraged participation in milieu. Offered JENSEN to ensure compliance however patient is declining it at this time. patient stated she is not able to stay with her mother in [place] and will again try to contact her brother and her father in [place] to see if that is a possibility for her to stay with them. If she is not allowed there then he will be discharged to assisted versus low-cost motel.
[2023-07-16] MEDS: OLANZapine 10 MG TAB PO PRN (15:15)
[2023-07-17] MEDS: NICOTINE 14MG/24HR PATCH TRANSDERM SCH (07:35)
[2023-07-17] MEDS: PALIPERIDONE 3 MG TAB.ER.24 PO SCH (08:01)
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
[2023-07-18] MEDS: NICOTINE 14MG/24HR PATCH TRANSDERM SCH (07:44)
[2023-07-18] MEDS: PALIPERIDONE 3 MG TAB.ER.24 PO SCH (08:05)
[2023-07-18 09:48] VITALS: BMI 25.2
[2023-07-18] MEDS: DULoxetine HCL 20 MG CAPSULE.DR PO SCH (15:26)
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
[2023-07-19] MEDS: DULoxetine HCL 20 MG CAPSULE.DR PO SCH (08:04)
[2023-07-19] MEDS: PALIPERIDONE 3 MG TAB.ER.24 PO SCH (08:04)
[2023-07-19] MEDS: NICOTINE 14MG/24HR PATCH TRANSDERM SCH (08:05)
[2023-07-19] MEDS: DULoxetine HCL 30 MG CAPSULE.DR PO SCH ×2 (11:00→20:21)
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
[2023-07-20 07:15] VITALS: BP 99/63; PULSE 108; RESP 18; TEMP 97
[2023-07-20] MEDS: NICOTINE 14MG/24HR PATCH TRANSDERM SCH (07:55)
[2023-07-20] MEDS: DULoxetine HCL 30 MG CAPSULE.DR PO SCH (07:55)
[2023-07-20] MEDS: PALIPERIDONE 3 MG TAB.ER.24 PO SCH (07:55)
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
== END 2023-07-20 15:32 | disposition home or self-care (01) | DRG 885 ==
LOC: EC 12:21 → 3MHU 07-06 00:55
PROVIDERS: ADMIT Psychiatry & Neurology Psychiatry; ATTEND Psychiatry & Neurology Psychiatry
DX: F25.9 Schizoaffective disorder, unspecified (principal); Z59.00 Homelessness unspecified; Z11.52 Encounter for screening for COVID-19; T43.96XA Underdosing of unspecified psychotropic drug, initial encounter; Z91.128 Patient's intentional underdosing of medication regimen for other reason; F10.10 Alcohol abuse, uncomplicated; F17.290 Nicotine dependence, other tobacco product, uncomplicated; Z87.442 Personal history of urinary calculi; Z71.3 Dietary counseling and surveillance; Z88.5 Allergy status to narcotic agent; Z88.8 Allergy status to other drugs, medicaments and biological substances; Z79.899 Other long term (current) drug therapy
CPT/HCPCS: 80053; 80061; 80164; 80306; 81001; 81025; 82075; 82248; 83036; 84443; 85025; 87635; 99285